=== PATIENT | male | born 1965 | race Caucasian/White ===

== ENCOUNTER → 2018-01-13 10:17 | Outpatient (CLI) | payer OTHER, SELFPAY ==
--- NOTE | 2018-01-13 10:20 | RAD_ITS ---
STUDY: X-RAY - RIGHT HAND, ATTENTION FIFTH FINGER REASON FOR EXAM: Male, 52 years old. Pain following injury. TECHNIQUE: 3 view(s) of the finger were obtained. COMPARISON: None. FINDINGS: Normal metacarpal head. Normal metacarpophalangeal joint. Normal proximal phalanx. Normal middle phalanx. Normal distal phalanx. Normal proximal interphalangeal joint. Normal distal interphalangeal joint. Soft tissue injury. Tiny radiopacity is seen in the ventral soft tissues at the level of the base of the distal phalanx of the fifth digit. RAD/Finger(s) Min 2 Views IMPRESSION: Soft tissue injury with a tiny radiopaque foreign body in the ventral soft tissues as described. Electronically Signed: Rufino Arshad MD at 16:00 EST Tel [phone], Service support ,
== END ==
PROVIDERS: Family Provider Family Medicine; PCP Family Medicine; Visit Provider Physician Assistant
DX: S60.021A Contusion of right index finger without damage to nail, initial encounter (principal)
CPT/HCPCS: 73140

== ENCOUNTER → 2024-01-10 | Outpatient (CLI) | payer OTHER, SELFPAY ==
--- NOTE | 2024-01-10 16:11 | MRI_ITS ---
EXAM: MR HEAD WITHOUT AND WITH INTRAVENOUS CONTRAST CLINICAL INDICATION: GBM s/p resection, planning for XRT -- compare to prior TECHNIQUE: Multiplanar and multisequence MR images of the brain were obtained without and with intravenous contrast. CONTRAST: IV 15CC Clariscan COMPARISON: MRI brain, 12/17/2023. FINDINGS: BRAIN AND EXTRA-AXIAL SPACES: Resection changes are present in the right orbital frontal region with resection cavity in the medial and posterior orbital frontal region. Minimal hypointense signal on GRE within the operative region consistent with minimal postoperative blood product. Extensive infiltrative T2 and T2 FLAIR hyperintensity is present throughout the right anterior frontal lobe with a similar distribution to the preoperative examination. On postcontrast sequences, there is thick irregular enhancement along the resection pathway and in the region of the resection cavity. Previously demonstrated larger confluent ring-enhancing lesions medially are no longer discretely visualized although superiorly, there may be a margin of enhancement correlating with the edge of one of the larger ring-enhancing foci foci. Laterally, in the left lateral orbital frontal cortex, there is a persistent nodular focus of enhancement similar to the prior exam. Nonenhancing masslike infiltrative signal abnormality within the right thalamus is again identified, unchanged compared to the prior examination. Mildly expansile nonenhancing signal abnormality in the right posterior frontal lobe, precentral gyrus region is also unchanged compared to the prior examination. There is no restricted diffusion to indicate recent infarct or other pathology. Posterior fossa structures are unremarkable. Basal cisterns are patent. SELLA: No significant abnormality. Normal sella turcica, pituitary gland, infundibular stalk, optic chiasm and hypothalamus. AUDITORY SYSTEM: No significant abnormality. The internal auditory canals are patent. BONES/JOINTS: Status post right frontal craniotomy. No discrete lytic or blastic abnormalities. SINUSES: Mucosal thickening in the paranasal sinuses. MASTOID AIR CELLS: Normal as visualized. Clear. ORBITS: Normal as visualized. Both globes, extraocular muscles, optic nerves and retrobulbar fat appear unremarkable. VASCULATURE: Normal as visualized. Normal flow voids in the major intracranial circulation. SOFT TISSUES: Expected postoperative changes in the scalp. MRI/Brain W/WO Contrast IMPRESSION: 1. Postoperative changes in the right orbital frontal region. Some of the enhancement in this region is likely postoperative as well as some residual enhancing tissue similar to the preoperative scan. The degree of infiltrative signal abnormality in the right frontal lobe is similar to the preoperative examination. 2. Unchanged nonenhancing masslike infiltrative signal abnormality in the right thalamus and the right precentral gyrus. 3. No evidence of acute infarct or other acute intracranial pathology compared to the prior exam. Electronically Signed: Fab Basurto, at 20:49 EST ,
== END | disposition home or self-care (01) ==
LOC: MRI 16:00
PROVIDERS: PCP Physician Assistant; Referring Provider Student in an Organized Health Care Education/Training Program; Visit Provider Student in an Organized Health Care Education/Training Program
DX: C71.1 Malignant neoplasm of frontal lobe (principal)
CPT/HCPCS: 70553; A9575

== ENCOUNTER → 2024-01-27 | Outpatient (CLI) | payer OTHER, SELFPAY ==
[2024-01-27] MEDS: Pentamidine Isethionate 300 MG, Water For Injection,Sterile 6 ML INHALATION (10:12)
== END | disposition home or self-care (01) ==
PROVIDERS: PCP Physician Assistant; Referring Provider Nurse Practitioner Family; Visit Provider Nurse Practitioner Family
DX: Z29.89 Encounter for other specified prophylactic measures (principal); C71.1 Malignant neoplasm of frontal lobe
CPT/HCPCS: 94642

== ENCOUNTER → 2024-02-20 | Outpatient (CLI) | payer OTHER, SELFPAY ==
--- NOTE | 2024-02-20 11:10 | CT_ITS ---
STUDY: CT BRAIN WITH AND WITHOUT CONTRAST REASON FOR EXAM: Male, 58 years old. GLIOBLASTOMA. Right hilar dizziness. RADIATION DOSAGE (If Supplied By Facility): CTDIvol = ( 44.99 ) mGy, DLP = ( 1682.21 ) mGycm TECHNIQUE: Transaxial CT imaging of the brain was performed pre and post contrast administration. The examination was performed with intravenous administration of IV 50mL Isovue-370. Individualized dose optimization techniques were used for this CT. COMPARISON: Comparison is made with prior study dated December 22, 2023. FINDINGS: Normal soft tissue structures. There is evidence of prior right frontal craniotomy. There now is evidence of a 3.5 cm x 3.3 cm rim-enhancing mass in the right frontal lobe with surrounding white matter edema. There is a shift of the midline from right to left measuring 7 mm. This has progressed as compared to prior study. Normal white matter tracts of the cerebral hemispheres. Normal basal ganglia and thalami. Normal brainstem. Normal cerebellum. There is no intracranial hemorrhage. There are no findings of an acute ischemic infarction. Partial opacification of the right maxillary sinus. CT/Brain/Head W/WO Contrast IMPRESSION: 3.5 cm x 3.3 cm rim-enhancing mass in the right frontal lobe with the surrounding edema and mass effect. This has progressed as compared to prior study. There is a midline shift of right to left measuring 7 mm. Electronically Signed: Rufino Arshad MD at 14:54 EDT ,
== END | disposition home or self-care (01) ==
LOC: CT 11:08
PROVIDERS: PCP Physician Assistant; Referring Provider Internal Medicine Medical Oncology; Visit Provider Internal Medicine Medical Oncology
DX: C71.1 Malignant neoplasm of frontal lobe (principal)
CPT/HCPCS: 70470; Q9967

== ENCOUNTER → 2024-02-24 | Outpatient (CLI) | payer OTHER, SELFPAY ==
[2024-02-24] MEDS: Pentamidine Isethionate 300 MG, Water For Injection,Sterile 6 ML INHALATION (08:18)
--- NOTE | 2024-02-24 08:55 | CPS ---
Upon going into the room at the 15 minute arun of the treatment, patient had a dusky color. He stated that he was feeling short of breath and was unable to speak in full sentences. I could hear audible wheezing. I administered an albuterol treatment to the patient and his color and demeanor improved within a few minutes. Patient had a similar reaction where he was short of breath, dizzy and unsteady on his feet after receiving his Pentamidine treatment last time. This time was worse. He stated that the symptoms start to occur about 5 minutes into the treatment. Patient looked and felt better, and had stable vitals before he left the outpatient area. His was also informed of the occurrence.
== END | disposition home or self-care (01) ==
LOC: PSN 08:07
PROVIDERS: PCP Physician Assistant; Referring Provider Nurse Practitioner Family; Visit Provider Nurse Practitioner Family
DX: Z29.89 Encounter for other specified prophylactic measures (principal); C71.1 Malignant neoplasm of frontal lobe
CPT/HCPCS: 94642

== ENCOUNTER → 2024-03-23 | Outpatient (CLI) | payer OTHER, SELFPAY ==
[2024-03-23] MEDS: Pentamidine Isethionate 300 MG, Water For Injection,Sterile 6 ML INHALATION (08:23)
--- NOTE | 2024-03-23 09:18 | CPS ---
This is the patient's 3rd Pentamidine treatment and he did not do well with the last one. Patient was found last time to have a pale, cornejo color upon returning to the treatment room. Patient was shaky last time and slow to respond to questions. He could not describe any symptoms to me just stated that he did not feel right but wasn't sure if he was dizzy or short of breath. This time I decided to stay in the room, wearing an N95, with the patient during treatment for observation. Also administered an Albuterol treatment prior to the Pentamidine treatment. Patient tolerated Albuterol treatment well. Heart Rate 90, SpO2 97%. After 10 minutes of Pentamidine treatment, patient's hand was a little shaky and he was slower to respond to my questions. Stopped treatment for a few minutes, Spo2 95%, HR 99, Breath sounds- Diminished. Restarted treatment a few minutes later and patient was able to finish.
== END | disposition home or self-care (01) ==
PROVIDERS: PCP Physician Assistant; Referring Provider Nurse Practitioner Family; Visit Provider Nurse Practitioner Family
DX: Z29.89 Encounter for other specified prophylactic measures (principal); C71.1 Malignant neoplasm of frontal lobe
CPT/HCPCS: 94642

== ENCOUNTER → 2024-04-03 | Outpatient (CLI) | payer OTHER, SELFPAY ==
--- NOTE | 2024-04-03 08:16 | MRI_ITS ---
HISTORY: H/O GLIOBLASTOMA MULTIFORME, PREVIOUS SX AND PREVIOUS MRI/CT. TECHNIQUE: Multiplanar and multisequence MR images of the brain were obtained before and after the intravenous administration of 14 mL Clariscan. 688 images. COMPARISON: CT 02/20/2024, MR 01/10/2024. FINDINGS: BRAIN PARENCHYMA: Heterogeneous 2.7 x 5.3 cm right frontal mass above the orbit with thick irregular ring-enhancing solid components, necrotic/cystic components, and a component of internal restricted diffusion from hypercellularity with a large amount of surrounding vasogenic edema, similar to recent CT and increased compared to prior MRI where it measured 2.2 x 4.2 cm. 6 mm more lateral satellite nodule also increased in size, previously 4 mm. Abnormal vasogenic edema without enhancement extends across the midline via the corpus callosum with a new 6 x 8 mm cystic component in the central portion of the genu. Abnormal vasogenic edema extends into the right basal ganglia. Persistent signal abnormality in the right thalamus without enhancement. Right frontal craniotomy with old blood products again seen. Mild dural enhancement along the roof of the right orbit. Faint focus of restricted diffusion without enhancement in the left frontoparietal white matter. Mild periventricular white matter changes. No acute intracranial hemorrhage identified. CSF SPACES: Sulcal effacement with mass effect on the right lateral ventricle and 5 mm leftward midline shift, similar to prior CT. VASCULAR SYSTEM: Major intracranial flow voids are maintained. PARANASAL SINUSES AND MASTOID AIR CELLS: Moderate fluid in the left maxillary sinus. ORBITS: Symmetric contents. MRI/Brain W/WO Contrast IMPRESSION: Increased size of heterogeneous right frontal lobe mass compared to prior MRI. Large amount of surrounding edema or nonenhancing tumor infiltration also increased from prior MRI resulting in mass effect and midline shift, similar to more recent CT as described above. Electronically Signed: Antonieta Elizabeth MD at 13:58 EDT ,
== END | disposition home or self-care (01) ==
PROVIDERS: PCP Physician Assistant
DX: C71.9 Malignant neoplasm of brain, unspecified (principal)
CPT/HCPCS: 70553; A9575

== ENCOUNTER → 2024-04-06 | Outpatient (CLI) | payer OTHER, SELFPAY ==
[2024-04-09 12:10] LABS: KEPPRA (LEVETIRACETAM) 23.5 ug/mL (10.0-40.0)
== END | disposition home or self-care (01) ==
PROVIDERS: PCP Physician Assistant
DX: R56.9 Unspecified convulsions (principal)
CPT/HCPCS: 36415; 80177

== ENCOUNTER → 2024-04-20 | Outpatient (CLI) | payer OTHER, SELFPAY ==
[2024-04-20 08:16] VITALS: PULSE 79; RESP 16
--- NOTE | 2024-04-20 08:17 | CPS ---
Pt was given albuterol aerosol rx prior to pentamadine. Computer was not working properly at time of rx's and was unable to scan medicine. Pt noah rx's well.
== END | disposition home or self-care (01) ==
LOC: PSN 07:51
PROVIDERS: PCP Physician Assistant; Referring Provider Nurse Practitioner Family; Visit Provider Nurse Practitioner Family
DX: Z29.89 Encounter for other specified prophylactic measures (principal); C71.1 Malignant neoplasm of frontal lobe
CPT/HCPCS: 94640; 94642

== ENCOUNTER → 2024-05-18 | Outpatient (CLI) | payer OTHER, SELFPAY ==
[2024-05-18] MEDS: Pentamidine Isethionate 300 MG, Water For Injection,Sterile 6 ML INHALATION (07:45)
== END | disposition home or self-care (01) ==
PROVIDERS: PCP Physician Assistant; Referring Provider Nurse Practitioner Family; Visit Provider Nurse Practitioner Family
DX: Z29.89 Encounter for other specified prophylactic measures (principal); C71.1 Malignant neoplasm of frontal lobe
CPT/HCPCS: 94642

== ENCOUNTER → 2024-06-15 | Outpatient (CLI) | payer OTHER, SELFPAY ==
[2024-06-15] MEDS: Pentamidine Isethionate 300 MG, Water For Injection,Sterile 6 ML INHALATION (08:07)
--- NOTE | 2024-06-15 08:22 | CPS ---
Administered Albuterol nebulizer prior to Pentamidine treatment, per protocol. Patient tolerates Pentamidine treatment better when given an Albuterol treatment first.
== END | disposition home or self-care (01) ==
PROVIDERS: PCP Physician Assistant; Referring Provider Nurse Practitioner Family; Visit Provider Nurse Practitioner Family
DX: C71.1 Malignant neoplasm of frontal lobe (principal); Z29.89 Encounter for other specified prophylactic measures
CPT/HCPCS: 94642

== ENCOUNTER → 2024-06-24 | Outpatient (CLI) | payer OTHER, SELFPAY ==
--- NOTE | 2024-06-24 16:34 | CT_ITS ---
INDICATION: GLIOBLASTOMA-HEADACHES -- HEADACHES/GLIOBLASTOMA EXAMINATION: CT BRAIN WITH AND WITHOUT CONTRAST - CT Head or Brain WO/W Contrast Injection TECHNIQUE: Multiple axial images were obtained of the brain with and without IV contrast. The protocol utilizes one or more of the following dose reduction techniques: automated exposure control, adjustment of mA and/or kV according to patient size,and/or use of iterative reconstruction technique. IV Contrast dosage and agent: 50 mL of Isovue-370 RADIATION DOSAGE (If Supplied By Facility): CTDIvol = ( 44.99 ) mGy, DLP = ( 1682.21 ) mGycm COMPARISON: Prior studies dated: MRI 05/04/[address] 02/20/2024 FINDINGS: BRAIN PARENCHYMA: Redemonstration of the right frontal lobe mass which shows peripheral enhancement. This currently measures 4.8 x 3.2 x 4.2 cm. This appears similar to the previous MRI in size. This has increased compared to 02/20/2024, though the previous midline shift has improved. There is surrounding edema with localized mass effect. No new mass identified. No intracranial hemorrhage. No evidence of acute infarct. There is preservation of the cornejo/white matter interface. Posterior fossa structures are unremarkable. CSF SPACES: Appropriate for age. No hydrocephalus. Basal cisterns are patent. CALVARIUM, SKULL BASE, PARANASAL SINUSES AND MASTOID AIR CELLS: Left maxillary sinus mucus retention cyst. The mastoid air cells are well aerated. Right frontal craniotomy noted. No discrete lytic or blastic abnormalities. ORBITS: Both globes, extraocular muscles, optic nerves and retrobulbar fat appear unremarkable. CT/Brain/Head W/WO Contrast IMPRESSION: Redemonstration of the right frontal lobe peripherally enhancing mass with surrounding edema and localized mass effect. Overall size of the mass is similar to the previous MRI from 05/04/2024. No intracranial hemorrhage. No new mass identified. Electronically Signed: Matt Avalos MD at 8:53 EDT Reading Location ID and State: [facility] / [place] Tel , Service support ,
== END | disposition home or self-care (01) ==
LOC: CT 16:32
PROVIDERS: PCP Physician Assistant; Referring Provider Internal Medicine Medical Oncology; Visit Provider Internal Medicine Medical Oncology
DX: C71.1 Malignant neoplasm of frontal lobe (principal); R51.9 Headache, unspecified; G89.29 Other chronic pain
CPT/HCPCS: 70470; Q9967

== ENCOUNTER → 2024-07-14 | Outpatient (CLI) | payer OTHER, SELFPAY ==
[2024-07-14] MEDS: Pentamidine Isethionate 300 MG, Water For Injection,Sterile 6 ML INHALATION (13:03)
== END | disposition home or self-care (01) ==
LOC: PSN 12:39
PROVIDERS: PCP Physician Assistant; Referring Provider Nurse Practitioner Family; Visit Provider Nurse Practitioner Family
DX: Z29.89 Encounter for other specified prophylactic measures (principal); C71.1 Malignant neoplasm of frontal lobe
CPT/HCPCS: 94642

== ENCOUNTER 2024-08-10 07:59 | Outpatient (CLI) | payer OTHER, SELFPAY ==
[2024-08-10] MEDS: Pentamidine Isethionate 300 MG, Water For Injection,Sterile 6 ML INHALATION (08:32)
== END 2024-08-10 23:59 | disposition home or self-care (01) ==
LOC: PSN 08:01
PROVIDERS: PCP Physician Assistant; Referring Provider Nurse Practitioner Family; Visit Provider Nurse Practitioner Family
DX: Z29.89 Encounter for other specified prophylactic measures (principal); C71.1 Malignant neoplasm of frontal lobe
CPT/HCPCS: 94642

== ENCOUNTER → 2024-09-07 | Outpatient (CLI) | payer OTHER, SELFPAY ==
[2024-09-07] MEDS: Pentamidine Isethionate 300 MG, Water For Injection,Sterile 6 ML INHALATION (08:21)
== END | disposition home or self-care (01) ==
PROVIDERS: PCP Physician Assistant; Referring Provider Nurse Practitioner Family; Visit Provider Nurse Practitioner Family
DX: Z29.89 Encounter for other specified prophylactic measures (principal); C71.1 Malignant neoplasm of frontal lobe
CPT/HCPCS: 94642

== ENCOUNTER 2024-09-14 15:39 | Emergency (ER) | payer OTHER, SELFPAY ==
[2024-09-14 15:40] VITALS: BP 135/95; PULSE 91; RESP 18; TEMP 36.2; O2SAT 98
[2024-09-14 17:58] VITALS: BMI 24.7
--- NOTE | 2024-09-14 18:06 | CT_ITS ---
STUDY: CT BRAIN WITHOUT CONTRAST REASON FOR EXAM: Male, 59 years old. dysequilibrium, brain ca hx RADIATION DOSAGE (If Supplied By Facility): CTDIvol = ( 44.99 ) mGy, DLP = ( 866.41 ) mGycm TECHNIQUE: Transaxial CT imaging of the brain was performed without administration of intravenous contrast material. Individualized dose optimization techniques were used for this CT. COMPARISON: June 24, 2024. FINDINGS: Normal soft tissue structures. Postop change status post right frontal craniotomy There is a hypoattenuated mass containing tiny foci of calcification in the right frontal lobe in association with severe diffuse vasogenic edema consistent with known glioblastoma. This produces mild mass effect upon the frontal pole of the right lateral ventricle and possible infiltration of the corpus callosum as well as mild midline shift approximating 6 mm which is new finding since prior study Normal size ventricles and extra-axial spaces for the patient''s age. Normal white matter tracts of the cerebral hemispheres. Normal basal ganglia and thalami. Normal brainstem. Normal cerebellum. Empty sella deformity is noted There is no intracranial hemorrhage. There are no findings of an acute ischemic infarction. Large mucous retention cyst or polyp in left maxillary sinus. CT/Brain/Head without Contrast IMPRESSION: Findings consistent with residual known glioblastoma in the right frontal lobe No evidence for obstructive hydrocephalus or acute bleed. There is approximately 6 mm midline shift which is new finding since prior exam. If concern for acute infarct MRI recommended Electronically Signed: Mikey Hendricks MD at 19:49 EDT ,
--- NOTE | 2024-09-14 18:07 | EKG12_ITS ---
Test Reason : DYSRHYTHMIA Blood Pressure : / mmHG Vent. Rate : 069 BPM Atrial Rate : 069 BPM P-R Int : 188 ms QRS Dur : 090 ms QT Int : 408 ms P-R-T Axes : 052 025 027 degrees QTc Int : 437 ms Sinus rhythm with occasional Premature ventricular complexes Otherwise normal ECG Confirmed by ILYA MURILLO, SHANNON ([id number]), manager editorial ERNESTO SANTIAGO ([id number]) on 09/15/2024 8:01:05 AM Referred By: Confirmed By:SHANNON CARABALLO MD
--- NOTE | 2024-09-14 18:09 | EDS_ITS ---
HPI History of Present Illness Chief Complaint: General Illness Informant: patient and family Narrative Narrative: 59-year-old male with a history of glioblastoma multiforme, he had surgery on his brain in November, he has been having rounds of chemotherapy since then, he just had 5 days of chemotherapy that started 8 days ago, and now he has 23 days off before his next round. Before this chemotherapy started, he was feeling disequilibrium and off-balance only when he walks. No spinning or movement in his head or nausea or vomiting. He has vision changes since his surgery but none since then more acutely. He denies any peripheral neurologic symptoms. He is feeling generally weak, but not confused or coughing or out of breath or GI symptoms or problems urinating. Family states they called the oncology office about all of this today as it has been going on for 1-2 weeks, but he was directed to the ER. [facility] Medical History Bug bite without infection Hypokalemia CINV (chemotherapy-induced nausea and vomiting) Encounter for education Need for pneumocystis prophylaxis Glioblastoma Brain concussion History of bad fall Vasogenic edema Generalized tonic-clonic seizure Asthma Diverticulitis Home Medications ?Medication ?Instructions ?Recorded ?Last Taken ?Type acetaminophen 500 mg capsule 500 mg PO Q6H PRN 12/25/23 Unknown History levetiracetam 750 mg tablet 750 mg PO BID 12/25/23 Unknown History oxycodone 5 mg tablet 5 mg PO TID PRN 12/25/23 Unknown History ondansetron 8 mg disintegrating 8 mg PO Q8H PRN nausea and 05/14/24 Unknown Rx tablet vomiting #30 tabs pentamidine 300 mg solution for 300 mg inhalation Q4W #1 ea 07/13/24 Unknown Rx inhalation temozolomide 180 mg capsule 360 mg (2 x 180 mg) PO QDAY 07/28/24 Unknown Rx Glioblastoma 5 days #10 caps omeprazole 20 mg capsule,delayed 20 mg PO QAM #30 caps 08/17/24 Unknown Rx release potassium chloride 20 mEq 20 meq PO BID #14 tabs 08/26/24 Unknown Rx tablet,extended release(part/cryst) dexamethasone 4 mg tablet 1 mg PO .qd 08/31/24 Unknown History Allergy/AdvReac Type Severity Reaction Status Date / Time venom-honey bee Allergy Unknown Verified 09/14/24 15:42 Family History Father Cancer Grandmother Cancer Sister Brain aneurysm Sister Pneumonia Surgical History S/P craniotomy History of carpal tunnel release Social History household members: spouse current occupational status: employed Smoking Status: Current every day smoker tobacco type: cigarettes alcohol intake: current alcohol intake frequency: 3 or more drinks per day Alcohol type: beer substance use type: does not use ROS ROS ED Constitutional Constitutional ED: Reports weakness; Denies chills or fever(s) Eyes Eyes: Denies change in vision or diplopia ENT ENT ED: Denies rhinorrhea or sore throat Cardiovascular Cardiovascular: Denies chest pain or palpitations Respiratory/Chest Respiratory/Chest: Denies cough or dyspnea Gastrointestinal Gastrointestinal: Denies abdominal pain, diarrhea, nausea or vomiting Genitourinary Genitourinary ED: Denies dysuria or hematuria Musculoskeletal Musculoskeletal: Denies back pain or neck pain Integumentary Denies abscess or rash Neurologic Neurologic: Reports disequilibrium; Denies headache(s), paresthesias or weakness EXAM Physical Exam Const Vital Signs: 09/14/24 15:40 09/14/24 18:05 09/14/24 18:25 Temperature 97.2 F L Temperature Source Temporal Pulse Rate 91 75 Respiratory Rate 18 24 H Respiratory Effort Normal Non-Labored Respiratory Pattern Normal Blood Pressure 135/95 H 142/95 H Blood Pressure Mean 108 110 Pulse Ox 98 97 Oxygen Delivery Method Room Air Room Air 09/14/24 20:00 Temperature Temperature Source Pulse Rate 72 Respiratory Rate 20 H Respiratory Effort Respiratory Pattern Blood Pressure 125/90 H Blood Pressure Mean 101 Pulse Ox 95 Oxygen Delivery Method Room Air Positive well nourished and well developed General Appearance ED: well developed and NAD HEENT Reports moist mucous membranes normocephalic and atraumatic Eyes PERRL and EOMs intact bilaterally Neck full ROM and supple Resp normal respiratory effort and clear to auscultation bilaterally Cardio regular rate, regular rhythm and no murmurs GI non-tender and non-distended Auscultation: normoactive bowel sounds Palpation: soft Back/Spine no CVA tenderness General Back: other FROM Extremity normal to inspection General Extremety ED: Negative for edema, pulses abnormal or tenderness General Extremity: Negative for edema or pulses abnormal Neuro oriented x3, CN's II-XII intact bilaterally and no sensory deficits noted Neuro Narrative: Normal strength and sensation throughout. Normal speech. Normal hospital receptionist. No dysarthria. Normal [id number] bilaterally but abnormal [id number] bilaterally. NIHSS 2 because of this. Sensorium / Orientation: awake and alert Motor Exam: strength 5/5 throughout Psych mental status grossly normal Skin no rashes or lesions noted and no wounds MDM MDM MDM Narrative Medical decision making narrative: Obtain a scan of the head given that the patient has history of GBM on also metabolic/infectious/cardiopulmonary workup. The CT of the head is acutely abnormal, showing chronic GBM findings on the right, but no new midline shift about 6 mm, presumably due to edema. I reviewed images and report which I agree with. Also obtain 2 view chest x-ray, there is some abnormality at the base of the right lung, but no prior to compare to, on my interpretation. Radiology's assumption is that this could be pneumonia, but recommends comparison, there is no comparison available right now and the patient has no cough or dyspnea so I presume that it may be a pre-existing finding and nothing acute. Additionally his pulse ox is excellent-98% on room air and he has no tachycardia or tachypnea or symptoms of pneumonia. His metabolic workup is noted. His potassium is a little low but otherwise fairly unremarkable. Urinalysis shows no acute infection. Discussed with his oncologist Dr. Pelaez. He recommends giving the patient 20 mg of IV Decadron and transferring him for neurosurgery evaluation, he follows with Dr. Perez at [facility]. Dr. Baeza was on-call for neurosurgery, he agrees the patient should come to be admitted and evaluated, recommends dexamethasone 4 mg every 6 hours after the 20 we gave him. Accepted to a step- down bed by Dr. Chairez. Lab Data Attestation: I reviewed the patient's lab results. Labs: Laboratory Results - last 24 hr 09/14/24 18:23 WBC 7.1 RBC 3.58 L Hgb 12.6 L Hct 36.9 L MCV 103.1 H MCH 35.2 H MCHC 34.1 RDW Std Deviation 65.8 H RDW Coeff of Nila 17.5 H Plt Count 323 MPV 8.8 Immature Gran % (Auto) 2.100 H Neut % (Auto) 76.7 H Lymph % (Auto) 8.2 L [place] % (Auto) 9.7 Eos % (Auto) 2.3 Baso % (Auto) 1.0 Absolute Neuts (auto) 5.4 Absolute Lymphs (auto) 0.58 L Nucleated RBC % 0 Atypical Lymphocytes 1+ Anisocytosis 1+ [place] Cells 1+ Sodium 141 Potassium 3.3 L Chloride 109 H Carbon Dioxide 24.0 Anion Gap 8 BUN 9 Creatinine 0.85 Estim Creat Clear Calc 93.57 Est GFR (MDRD) Af Amer 118 Est GFR (MDRD) Non-Af 97 BUN/Creatinine Ratio 10.5 Glucose 90 Calcium 8.7 Urine Color Yellow Urine Clarity Sl. Cloudy Urine pH 6.0 Ur Specific [place] 1.015 Urine Protein 30 H Urine Glucose (UA) Normal Urine Ketones 5 H Urine Occult Blood 10 H Urine Nitrite Negative Urine Bilirubin 1 H Urine Urobilinogen 1 H Ur Leukocyte Esterase 25 H Urine RBC 0-5 SEEN Urine WBC 0-5 SEEN Ur Squamous Epith Cells 0 SEEN Urine Bacteria 0 SEEN Urine Mucus 0 SEEN Radiography Diagnostic Testing: Clinical Impression(s) from Imaging Studies Brain CT 09/14/24 18:06 IMPRESSION: Findings consistent with residual known glioblastoma in the right frontal lobe No evidence for obstructive hydrocephalus or acute bleed. There is approximately 6 mm midline shift which is new finding since prior exam. If concern for acute infarct MRI recommended Electronically Signed: Mikey Hendricks MD at 19:49 EDT Reading Location ID and State: [facility] / [place] Tel [phone], Service support , Chest X-Ray 09/14/24 18:40 IMPRESSION: Nonspecific interstitial thickening in the right lower lobe possibly pneumonia. Would recommend correlation with prior studies when available to assess for interval changes Otherwise no acute cardiac pulmonary pathology Electronically Signed: Mikey Hendricks MD at 19:56 EDT , Rhythm Strip Rhythm Strip: Sinus Rhythm Rate: 69 Ectopy: None EKG Initial EKG: Attestation: I personally reviewed and interpreted this EKG as follows: Interpretation: Sinus Rhythm and No Acute Injury Pattern Comments: Nml axis & intervals; nml EKG Management Discussion w/another healthcare provider: [facility] (Neurosurgery Dr. Baeza) Discharge Plan Triage Chief Complaint: General Illness Other Complaint: Fall ED Provider: Partha Jones Dx/Rx/DC Orders Clinical Impression: Ataxia, Glioblastoma multiforme of frontal lobe Prescriptions: No Action acetaminophen 500 mg capsule 500 mg PO Q6H PRN levetiracetam 750 mg tablet 750 mg PO BID oxycodone 5 mg tablet 5 mg PO TID PRN ondansetron 8 mg tablet,disintegrating 8 mg PO Q8H PRN (Reason: nausea and vomiting) Qty: 30 5RF dexamethasone 4 mg tablet 1 mg PO .qd temozolomide 180 mg capsule 360 mg PO QDAY 5 Days Qty: 10 3RF Rx Instructions: must be taken on empty stomach potassium chloride 20 mEq tablet,ER particles/crystals 20 meq PO BID Qty: 14 0RF pentamidine 300 mg recon soln 300 mg inhalation Q4W Qty: 1 11RF omeprazole 20 mg capsule,delayed release(DR/EC) 20 mg PO QAM Qty: 30 2RF Primary Care Provider: Kevyn Dixon Referrals: Kevyn Dixon PA [Primary Care Provider] - Print Language: Slovak Disposition Disposition: Acute Care Hospital Discharge Location: [facility]
[2024-09-14 18:25] VITALS: BP 142/95; PULSE 75; RESP 24; O2SAT 97
[2024-09-14 18:29] LABS: Bacteria 0 SEEN /hpf (None Seen); Mucous, Urine 0 SEEN /hpf (<or=2+); Squamous Epithelial Cells - UA 0 SEEN /hpf (0-5)
[2024-09-14 18:31] LABS: Absolute Lymphocyte Count 0.58 X10^3/uL (0.83-4.51); Absolute Neutrophil Count 5.4 X10^3/uL (2.0-7.7); Basophil# 0.07 X10^3/uL; Eosinophil# 0.16 X10^3/uL; Eosinophils% 2.3 % (0-5); Hematocrit 36.9 % (40-54); Hemoglobin 12.6 g/dL (13.0-16.5); Lymphocyte # 0.58 X10^3/ul (0.83-4.51); Lymphocyte % 8.2 % (19-41); Mean Corp Hgb Conc 34.1 g/dL (32-36); Mean Corpuscular Hgb 35.2 pg (27.0-32.0); Mean Corpuscular Volume 103.1 fL (80-94); Mean Platelet Vol. 8.8 fl (6.2-12.0); Monocyte# 0.69 X10^3/uL; Monocyte% 9.7 % (0-10); NRBC Flagged by Analyzer 0 % (0-5); Neutrophil # 5.44 X10^3/uL (2.7-7.7); Neutrophil % 76.7 % (47-70); POSITIVE DIFFERENTIAL YES; POSITIVE MORPHOLOGY YES; Platelet Count 323 K/mm3 (150-450); RBC Distribution Width CV 17.5 % (11.6-14.6); RBC Distribution Width SD 65.8 fl (35.1-43.9); Red Blood Count 3.58 M/mm3 (4.6-6.2); White Blood Count 7.1 K/mm3 (4.4-11.0)
[2024-09-14 18:36] LABS: Color, Urine Yellow (Yellow); Glucose, Dipstick Normal (Normal); Ketone-Dipstick 5 mg/dl (Negative); Leukocyte Esterase-Dipstick 25 /ul (Negative); Nitrite-Dipstick Negative (Negative); Occult Blood-Urine 10 /ul (Negative); Protein-Dipstick 30 mg/dl (Negative); Specific Gravity, Urine 1.015 (1.002-1.030); Urine Clarity Sl. Cloudy (Clear); Urine Urobilinogen 1 mg/dl (Normal)
[2024-09-14 18:38] LABS: Differential Indicated SCAN CRITERIA MET
--- NOTE | 2024-09-14 18:40 | RAD_ITS ---
STUDY: X-RAY CHEST REASON FOR EXAM: Male, 59 years old. weakness TECHNIQUE: PA and lateral COMPARISON: None. FINDINGS: Nonspecific interstitial thickening of the right lower lobe possibly inflammatory. Without prior studies for comparison it would be difficult to exclude chronic changes.. There is no demonstrated pleural abnormality. Normal size heart. Normal mediastinum and sonia. Normal visualized pulmonary arteries. Normal visualized aortic arch and descending thoracic aorta. Normal visualized thoracic spine. Normal visualized ribs, clavicles, and shoulders. There is no demonstrated abnormality of the visualized soft tissue structures of the upper abdomen. RAD/Chest PA and Lateral IMPRESSION: Nonspecific interstitial thickening in the right lower lobe possibly pneumonia. Would recommend correlation with prior studies when available to assess for interval changes Otherwise no acute cardiac pulmonary pathology Electronically Signed: Mikey Hendricks MD at 19:56 EDT ,
[2024-09-14 18:41] LABS: Urine Bilirubin Dipstick 1 mg/dL (Negative)
[2024-09-14 18:46] LABS: Red Blood Cells-Urine 0-5 SEEN /hpf (0-5); White Blood Cells 0-5 SEEN /hpf (0-5)
[2024-09-14 18:49] LABS: Anion Gap 8 (5-15); BUN 9 mg/dL (7-18); BUN/Creat Ratio 10.5 RATIO (10-20); Calcium,Total 8.7 mg/dL (8.5-10.1); Chloride 109 mmol/L (98-107); Creatinine, Serum 0.85 mg/dL (0.70-1.30); EST Glomerular Filtration Rate 97 mL/min (>60); Est Glom Filt Rate - Afr Amer 118 mL/min (>60); Estimated Creatinine Clearance 93.57 ml/min; Glucose 90 mg/dL (74-106); Potassium 3.3 mmol/L (3.5-5.1); Sodium Level 141 mmol/L (136-145)
[2024-09-14 19:13] LABS: Atypical Lymphocyte 1+ %; Burr Cells 1+
[2024-09-14 19:14] LABS: Anisocytosis 1+
[2024-09-14 20:00] VITALS: BP 125/90; PULSE 72; RESP 20; O2SAT 95
[2024-09-14] MEDS: dexAMETHasone 20 MG/5 ML Vial IV (20:58)
--- NOTE | 2024-09-14 21:13 | ED.RN ---
PT ACCEPTED AT [address] [phone]. [facility] ETA 90-2HR
[2024-09-14 21:20] VITALS: BP 120/85; PULSE 76; RESP 18; TEMP 36.6; O2SAT 96
[2024-09-14 22:00] VITALS: BP 134/96; PULSE 79; RESP 20; O2SAT 94
== END 2024-09-14 23:00 | disposition short-term general hospital (02) ==
PROVIDERS: Emergency Provider Emergency Medicine; PCP Physician Assistant; Visit Provider Emergency Medicine
DX: C71.1 Malignant neoplasm of frontal lobe (principal); R27.0 Ataxia, unspecified; F17.210 Nicotine dependence, cigarettes, uncomplicated; R29.702 NIHSS score 2; Z98.890 Other specified postprocedural states; J45.909 Unspecified asthma, uncomplicated
CPT/HCPCS: 70450; 71046; 80048; 81001; 85025; 93005; 96374; 99284; A4216

== ENCOUNTER → 2024-10-05 | Outpatient (CLI) | payer OTHER, SELFPAY ==
[2024-10-05] MEDS: Pentamidine Isethionate 300 MG, Water For Injection,Sterile 6 ML INHALATION (08:07)
== END | disposition home or self-care (01) ==
LOC: PSN 07:49
PROVIDERS: PCP Physician Assistant; Referring Provider Nurse Practitioner Family; Visit Provider Nurse Practitioner Family
DX: C71.1 Malignant neoplasm of frontal lobe (principal); Z29.89 Encounter for other specified prophylactic measures
CPT/HCPCS: 94642